=== PATIENT | male | born 1990 | race Caucasian/White ===

== ENCOUNTER 2017-04-05 00:26 | Emergency (ER) | payer OTHER ==
[2017-04-05] MEDS ORDERED: LORazepam 1 MG TAB PO STA (01:52)
--- NOTE | 2017-04-05 02:29 | ED ---
Psych HPI - General Chief Complaint: Psychiatric Symptoms Stated Complaint: mental health Time Seen by Provider: 04/05/17 01:45 Source: patient, RN notes reviewed Mode of arrival: ambulatory - History of Present Illness Initial Comments: Patient is a 26-year-old male presents to the emergency room for psych evaluation. Patient does state he has history of depression, anxiety and PTSD. Patient states he hasn't been on any of his psych meds for the past year. Patient states he's been in alf and has been having family issues. Patient states he has been feeling very depressed about life. Patient does state he is currently homeless which is making him feel even more down. Patient states earlier today he was having suicidal thoughts but no plan. Patient denies being current suicidal. Patient denies chest pain or shortness of breath. Patient denies headache or dizziness. Patient denies nausea or vomiting. Patient denies abdominal pain. Patient denies illicit drug use. Patient denies alcohol use. Patient denies smoking. Patient denies visual or auditory hallucinations. Patient denies homicidal ideations. - Related Data Home Medications Medication Instructions Recorded Confirmed Escitalopram [Lexapro] 10 mg PO DAILY 08/16/15 01/01/16 Previous Rx's Medication Instructions Recorded Orphenadrine [Norflex] 100 mg PO Q12H #10 tablet.er 01/01/16 predniSONE 50 mg PO DAILY #5 tab 01/01/16 Allergies Allergy/AdvReac Type Severity Reaction Status Date / Time divalproex sodium Allergy Unknown Verified 04/05/17 00:31 [facility] Review of Systems ROS Statement: Those systems with pertinent positive or pertinent negative responses have been documented in the HPI. ROS Other: All systems not noted in ROS Statement are negative. Past Medical History Past Medical History: Asthma History of Any Multi-Drug Resistant Organisms: None Reported Additional Past Surgical History / Comment(s): left shoulder rotator cuff repair and biceps tendon repair left arm Past Psychological History: Anxiety, Bipolar, Depression, PTSD Smoking Status: Never smoker Past Alcohol Use History: None Reported Past Drug Use History: None Reported General Exam - General Exam Comments Initial Comments: sitting in exam room, no acute distress. Limitations: no limitations General appearance: alert, in no apparent distress Head exam: Present: atraumatic, normocephalic, normal inspection Eye exam: Present: normal appearance ENT exam: Present: normal exam Neck exam: Present: normal inspection Respiratory exam: Present: normal lung sounds bilaterally. Absent: respiratory distress Cardiovascular Exam: Present: regular rate, normal rhythm, normal heart sounds GI/Abdominal exam: Present: soft, normal bowel sounds. Absent: distended, tenderness, guarding, rebound, rigid Extremities exam: Present: normal inspection Back exam: Present: normal inspection Neurological exam: Present: alert, oriented X3, CN II-XII intact, normal gait Psychiatric exam: Present: normal affect, normal mood Skin exam: Present: warm, dry, intact, normal color. Absent: rash Course Vital Signs 04/05/17 04/05/17 00:27 03:53 Temperature 97.9 F 98.2 F Pulse Rate 88 94 Respiratory 16 18 Rate Blood Pressure 141/79 129/79 O2 Sat by Pulse 98 98 Oximetry Medical Decision Making - Medical Decision Making patient is 26-year-old male presents emergency for psych evaluation. Patient medically cleared to be evaluated by psych. Patient evaluated by EPS and does not meet admission criteria. Patient given a list of referrals and advised to follow up with [facility] in the morning at 8 AM. Return parameters discussed. - Lab Data Lab Results 04/05/17 Range/Units 02:17 Urine Opiates Screen Not Detected (NotDetected) Ur Oxycodone Screen Not Detected (NotDetected) Urine Methadone Screen Not Detected (NotDetected) Ur Propoxyphene Screen Not Detected (NotDetected) Ur Barbiturates Screen Not Detected (NotDetected) U Tricyclic Antidepress Not Detected (NotDetected) Ur Phencyclidine Scrn Not Detected (NotDetected) Ur Amphetamines Screen Not Detected (NotDetected) U Methamphetamines Scrn Not Detected (NotDetected) U Benzodiazepines Scrn Not Detected (NotDetected) Urine Cocaine Screen Not Detected (NotDetected) U Marijuana (THC) Screen Not Detected (NotDetected) Disposition Clinical Impression: Depression, Anxiety Disposition: HOME SELF-CARE Condition: Good Instructions: Depression (ED) Additional Instructions: Please follow up with [facility] at 8 AM. If any new symptom arises or symptoms worsen , return to ER as soon as possible. Referrals: None,Stated [Primary Care Provider] - 1-2 days Time of Disposition: 03:53
[2017-04-05 03:59] VITALS: BP 129/79; PULSE 94; RESP 18; TEMP 98.2
== END 2017-04-05 04:03 | disposition home or self-care (01) ==
LOC: EC 00:26
DX: F32.9 Major depressive disorder, single episode, unspecified (principal); F41.9 Anxiety disorder, unspecified; Z79.899 Other long term (current) drug therapy; Z88.8 Allergy status to other drugs, medicaments and biological substances; Z59.0 Homelessness
CPT/HCPCS: 80306; 82075; 99284

== ENCOUNTER 2017-04-09 20:38 | Emergency (ER) | payer OTHER ==
[2017-04-09 21:31] VITALS: BP 114/68; PULSE 94; RESP 18; TEMP 98.8
--- NOTE | 2017-04-09 21:35 | ED ---
Lower Extremity Injury HPI - General Chief Complaint: Extremity Injury, Lower Stated Complaint: knee pain Time Seen by Provider: 04/09/17 21:29 Source: patient, RN notes reviewed, old records reviewed Mode of arrival: ambulatory - History of Present Illness Initial Comments: This is a 26-year-old male presenting to the emergency Department chief complaint of right knee pain. Patient reports he walked from [place] to [facility] today. Patient reports that he is very sunburn. Patient states that over the day and all the walking causes her to have some pain with in his right knee. Patient reports it's worse with flexion and extension. Patient states he had some previous football injuries of his knee when he was in middle school in high school. Denies any specific twisting or motions that cause the injury today. Patient states that he has no foot or calf pain. Denies any fever or chills or other symptoms. Patient reports that he is currently homeless. - Related Data Home Medications Medication Instructions Recorded Confirmed Escitalopram [Lexapro] 10 mg PO DAILY 08/16/15 01/01/16 Previous Rx's Medication Instructions Recorded Orphenadrine [Norflex] 100 mg PO Q12H #10 tablet.er 01/01/16 predniSONE 50 mg PO DAILY #5 tab 01/01/16 Ibuprofen [Motrin] 600 mg PO Q8HR PRN #20 tab 04/09/17 Allergies Allergy/AdvReac Type Severity Reaction Status Date / Time divalproex sodium Allergy Unknown Verified 04/05/17 00:31 [From Depak[facility]] Review of Systems ROS Statement: Those systems with pertinent positive or pertinent negative responses have been documented in the HPI. ROS Other: All systems not noted in ROS Statement are negative. Past Medical History Past Medical History: Asthma History of Any Multi-Drug Resistant Organisms: None Reported Additional Past Surgical History / Comment(s): left shoulder rotator cuff repair and biceps tendon repair left arm Past Psychological History: Anxiety, Bipolar, Depression, PTSD Smoking Status: Never smoker Past Alcohol Use History: None Reported Past Drug Use History: None Reported General Exam - General Exam Comments Initial Comments: Pleasant 26-year-old male. No distress. General appearance: alert, in no apparent distress Head exam: Present: atraumatic, normocephalic, normal inspection Eye exam: Present: normal appearance, PERRL, EOMI. Absent: scleral icterus, conjunctival injection, periorbital swelling ENT exam: Present: normal exam, mucous membranes moist Neck exam: Present: normal inspection. Absent: tenderness, meningismus, lymphadenopathy Respiratory exam: Present: normal lung sounds bilaterally. Absent: respiratory distress, wheezes, rales, rhonchi, stridor Cardiovascular Exam: Present: regular rate, normal rhythm, normal heart sounds. Absent: systolic murmur, diastolic murmur, rubs, gallop, clicks GI/Abdominal exam: Present: soft, normal bowel sounds. Absent: distended, tenderness, guarding, rebound, rigid Extremities exam: Present: normal inspection, full ROM, normal capillary refill , other (Right knee has full range of motion. Patient does report some pain with flexion and extension. Negative valgus or varus signs.). Absent: tenderness, pedal edema, joint swelling, calf tenderness Back exam: Present: normal inspection Neurological exam: Present: alert, oriented X3, CN II-XII intact Psychiatric exam: Present: normal affect, normal mood Course Vital Signs 04/09/17 04/09/17 21:22 22:33 Temperature 98.8 F 98.8 F Pulse Rate 94 94 Respiratory 18 18 Rate Blood Pressure 114/68 114/68 O2 Sat by Pulse 98 98 Oximetry Medical Decision Making - Medical Decision Making This is a 26-year-old male presenting to the emergency Department chief complaint of right knee pain. Patient reports he walked from [place] to [facility] today. Patient reports that he is very sunburn. Patient states that over the day and all the walking causes her to have some pain with in his right knee. Patient reports it's worse with flexion and extension. Patient states he had some previous football injuries of his knee when he was in middle school in high school. Denies any specific twisting or motions that cause the injury today. Patient states that he has no foot or calf pain. Denies any fever or chills or other symptoms. Patient has pain with full flexion and extension of the knee. No evidence of significant swelling or redness. Patient was given Motrin for pain. Patient does have significant sunburn to the amount of walking his son today. Patient was given some binge drink and food. Patient x-ray was reviewed, negative for any acute process. Patient given tylenol and ultram starter pack. Patient given an SAMUEL wrap for the knee, likely a stress related injury due to prolonged walking. Return parameters discussed. - Radiology Data Radiology results: report reviewed No fracture or malalignment of right knee Disposition Clinical Impression: Knee pain, right Disposition: HOME SELF-CARE Condition: Good Instructions: Knee Sprain (ED) Additional Instructions: Patient is to rest, ice, and elevate the knee. Wear the Samuel wrap for compression. Follow-up with a primary care provider. Patient should rest, remain hydrated. Take Motrin for pain. Prescriptions: Ibuprofen [Motrin] 600 mg PO Q8HR PRN #20 tab PRN Reason: Pain Referrals: None,Stated [Primary Care Provider] - 1-2 days Maricruz Tierney MD [STAFF PHYSICIAN] - 1-2 days Time of Disposition: 22:20
[2017-04-09] MEDS ORDERED: IBUPROFEN 800 MG TAB PO STA (21:56)
--- NOTE | 2017-04-09 22:17 | XR ---
EXAM: XR Right Knee, 3 views CLINICAL HISTORY: Reason: Pain TECHNIQUE: Three views of the right knee. COMPARISON: No relevant prior studies available. FINDINGS: Bones/joints: No acute fracture or malalignment. Soft tissues: Unremarkable. IMPRESSION: No acute fracture or malalignment.
[2017-04-09] MEDS ORDERED: IBUPROFEN 600 MG STARTER PACK 4 TAB BTL PO STA (22:21)
[2017-04-09] MEDS ORDERED: traMADol 50 MG STARTER PACK 3 TAB BTL PO STA (22:21)
== END 2017-04-09 22:36 | disposition home or self-care (01) ==
LOC: EC 20:38
DX: M25.561 Pain in right knee (principal); L55.9 Sunburn, unspecified; F32.9 Major depressive disorder, single episode, unspecified; F41.9 Anxiety disorder, unspecified; Z79.899 Other long term (current) drug therapy; Z88.8 Allergy status to other drugs, medicaments and biological substances; Z59.0 Homelessness
CPT/HCPCS: 99284

== ENCOUNTER 2017-04-27 21:13 | Emergency (ER) | payer OTHER ==
[2017-04-27 21:27] VITALS: TEMP 99
[2017-04-27] MEDS ORDERED: KETOROLAC 60 MG/2 ML VIAL IM STA (21:51)
--- NOTE | 2017-04-27 21:51 | ED ---
General Adult HPI - General Chief complaint: Chest Pain Stated complaint: CHEST PAIN Time Seen by Provider: 04/27/17 21:37 Source: patient, RN notes reviewed Mode of arrival: ambulatory Limitations: no limitations - History of Present Illness Initial comments: Patient is a pleasant 26-year-old male presenting to the emergency department complaining of chest discomfort. Onset was an hour or so ago. Patient states he has had similar problems multiple times. Discomfort is sharp. Discomfort increases with movement and deep breaths. Patient has had a mild cough recently. No fevers. No radiation of pain. - Related Data Previous Rx's Medication Instructions Recorded ALPRAZolam [Xanax] 0.5 mg PO Q8HR PRN #6 tablet 04/27/17 Allergies Allergy/AdvReac Type Severity Reaction Status Date / Time divalproex sodium Allergy Unknown Verified 04/27/17 22:01 [From [facility]] Review of Systems ROS Statement: Those systems with pertinent positive or pertinent negative responses have been documented in the HPI. ROS Other: All systems not noted in ROS Statement are negative. Constitutional: Denies: fever Eyes: Denies: eye pain ENT: Denies: ear pain Respiratory: Reports: cough. Denies: dyspnea Cardiovascular: Reports: chest pain. Denies: palpitations Endocrine: Denies: fatigue Gastrointestinal: Denies: abdominal pain Genitourinary: Denies: dysuria Musculoskeletal: Denies: back pain Skin: Denies: rash Neurological: Denies: weakness Past Medical History Past Medical History: Asthma History of Any Multi-Drug Resistant Organisms: None Reported Additional Past Surgical History / Comment(s): left shoulder rotator cuff repair and biceps tendon repair left arm Past Psychological History: Anxiety, Depression, PTSD Smoking Status: Never smoker Past Alcohol Use History: None Reported Past Drug Use History: None Reported General Exam Limitations: no limitations General appearance: alert, in no apparent distress Head exam: Present: atraumatic Eye exam: Present: normal appearance, PERRL ENT exam: Present: normal oropharynx Neck exam: Present: normal inspection Respiratory exam: Present: normal lung sounds bilaterally, chest wall tenderness (Left sternal) Cardiovascular Exam: Present: regular rate, normal rhythm Expanded Peripheral pulses: 2+: Radial (R), Radial (L), Dorsalis Pedis (R), Dorsalis Pedis (L) GI/Abdominal exam: Present: soft. Absent: tenderness Extremities exam: Present: normal inspection. Absent: pedal edema, calf tenderness Neurological exam: Present: alert Psychiatric exam: Present: normal affect, normal mood Skin exam: Present: normal color Course Vital Signs 04/27/17 04/27/17 21:24 21:53 Temperature 99 F Pulse Rate 87 83 Respiratory 18 16 Rate Blood Pressure 139/87 127/80 O2 Sat by Pulse 97 98 Oximetry EKG Findings - EKG Comments: EKG Findings:: Normal sinus rhythm 80. Normal intervals. Normal axis. Normal QRS. Normal ST-T. Medical Decision Making - Medical Decision Making Patient reevaluated and resting comfortably in bed. Patient updated on results. Patient requests medication for anxiety. - Radiology Data Radiology results: image reviewed (Chest x-ray shows no acute process) Disposition Clinical Impression: Costochondritis Disposition: HOME SELF-CARE Condition: Stable Instructions: Costochondritis (ED), Chest Pain (ED) Additional Instructions: Please follow-up with primary care physician in the beginning of the week. Return for increased pain, difficulty breathing, fevers, worsening or changing symptoms or other concerns. [id number] Motrin as needed. Prescriptions: ALPRAZolam [Xanax] 0.5 mg PO Q8HR PRN #6 tablet PRN Reason: Anxiety Referrals: None,Stated [Primary Care Provider] - 1-2 days Delphine Olson MD [REFERRING] - 1-2 days Maricruz Tierney MD [STAFF PHYSICIAN] - 1-2 days Time of Disposition: 22:26
[2017-04-27 21:54] VITALS: RESP 16
--- NOTE | 2017-04-27 22:09 | XR ---
EXAMINATION TYPE: XR chest 2V DATE OF EXAM: 04/27/2017 COMPARISON: 08/10/2015 HISTORY: Chest pain TECHNIQUE: Frontal and lateral views of the chest are obtained. FINDINGS: Heart and mediastinum are normal. Lungs are clear. Diaphragm is normal. Bony thorax is int act. There are chest leads. IMPRESSION: Normal chest. No change.
[2017-04-27 22:30] VITALS: BP 118/58; PULSE 70
== END 2017-04-27 22:48 | disposition home or self-care (01) ==
LOC: EC 21:13
DX: M94.0 Chondrocostal junction syndrome [Tietze] (principal); R07.89 Other chest pain; Z88.8 Allergy status to other drugs, medicaments and biological substances
CPT/HCPCS: 99285; 96372; 93005; 71020; J1885

== ENCOUNTER 2017-05-14 08:47 | Emergency (ER) | payer OTHER ==
[2017-05-14 08:50] VITALS: TEMP 97.1
[2017-05-14] MEDS ORDERED: IBUPROFEN 600 MG TAB PO STA (09:07)
--- NOTE | 2017-05-14 09:12 | ED ---
Lower Extremity Injury HPI - General Chief Complaint: Extremity Injury, Lower Stated Complaint: left knee injury Time Seen by Provider: 05/14/17 08:58 Source: patient, RN notes reviewed Mode of arrival: ambulatory Limitations: no limitations - History of Present Illness Initial Comments: Patient is 26-year-old male presents to the emergency room for evaluation of left knee pain. 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 Patient states it. In the medial portion of his knee. Patient states that he 7 out of 10 pain. Patient denies taking anything for pain. Patient states the pain is worse ever he walks or bends her knee. Patient numbness or tingling in his toes. Patient denies any other injuries during incident. - Related Data Previous Rx's Medication Instructions Recorded Ibuprofen [Motrin] 600 mg PO Q6HR PRN #20 tab 05/14/17 Allergies Allergy/AdvReac Type Severity Reaction Status Date / Time divalproex sodium Allergy Swelling/YELLOW Verified 05/14/17 08:56 [facility] EYES Review of Systems ROS Statement: Those systems with pertinent positive or pertinent negative responses have been documented in the HPI. ROS Other: All systems not noted in ROS Statement are negative. Past Medical History Past Medical History: Asthma History of Any Multi-Drug Resistant Organisms: None Reported Additional Past Surgical History / Comment(s): left shoulder rotator cuff repair and biceps tendon repair left arm Past Psychological History: Anxiety, Depression, PTSD Smoking Status: Never smoker Past Alcohol Use History: None Reported Past Drug Use History: None Reported General Exam - General Exam Comments Initial Comments: Sitting in exam room, no distress. Limitations: no limitations General appearance: alert, in no apparent distress Head exam: Present: atraumatic, normocephalic, normal inspection Eye exam: Present: normal appearance ENT exam: Present: normal exam Neck exam: Present: normal inspection Respiratory exam: Absent: respiratory distress Left Upper Leg exam: Present: normal inspection, full ROM. Absent: tenderness Knee exam: Present: normal inspection, full ROM, tenderness (Tenderness on palpating over the medial knee joint). Absent: swelling, ecchymosis, deformity , crepitus Lower Leg exam: Present: normal inspection, full ROM. Absent: tenderness Neurovascular tendon exam: Present: no vascular compromise. Absent: pulse deficit (2+ dorsal pedal and posterior tibial pulses), abnormal cap refill ( Capillary refill less than 2 seconds) Back exam: Present: normal inspection Neurological exam: Present: alert, oriented X3, CN II-XII intact Psychiatric exam: Present: normal affect, normal mood Skin exam: Present: warm, dry, intact, normal color. Absent: rash Course Vital Signs 05/14/17 08:48 Temperature 97.1 F L Pulse Rate 66 Respiratory 17 Rate Blood Pressure 125/69 O2 Sat by Pulse 96 Oximetry Medical Decision Making - Medical Decision Making Patient is a 26-year-old male presents emergency room for evaluation of left knee pain. Left knee x-ray shows no acute findings. Patient placed in Samuel wrap advised up with optical instrument specialist for further evaluation if symptoms not improving in 7-10 days. Patient states he understands everything that was discussed with him. Return parameters discussed. Case discussed with Dr. López. - Radiology Data Radiology results: report reviewed, image reviewed Disposition Clinical Impression: Left knee sprain Disposition: HOME SELF-CARE Condition: Good Instructions: Knee Sprain (ED) Additional Instructions: Ice on and off for 10-15 minutes for the next 24-48 hours. Take Tylenol or Motrin as needed for pain. Please follow-up with optical instrument specialist in 7-10 days if symptoms are not improving. If new symptoms develop or symptoms worsen, please return to the ER. Prescriptions: Ibuprofen [Motrin] 600 mg PO Q6HR PRN #20 tab PRN Reason: Pain Referrals: Neema Fox MD [Primary Care Provider] - 1-2 days Luis Felipe Rae MD [STAFF PHYSICIAN] - 1-2 days Time of Disposition: 09:46
--- NOTE | 2017-05-14 09:27 | XR ---
EXAMINATION TYPE: XR knee complete LT DATE OF EXAM: 05/14/2017 CLINICAL HISTORY: pain TECHNIQUE: Three views of the left knee are obtained. COMPARISON: None. FINDINGS: There is no acute fracture/dislocation. The tri-compartment joint spaces appear within no rmal limits. The overlying soft tissue appears unremarkable. Small bone island proximal tibial diaph ysis. Small cystic lesion diametaphyseal region of the tibia may reflect a simple cyst. This could be further evaluated with nonemergent MRI. IMPRESSION: There is no acute fracture or dislocation ICD 10 NO FRACTURE, INITIAL EVALUATION
[2017-05-14 10:11] VITALS: BP 124/81; PULSE 70; RESP 18
== END 2017-05-14 10:09 | disposition home or self-care (01) ==
LOC: EC 08:47
DX: S83.92XA Sprain of unspecified site of left knee, initial encounter (principal); Z88.8 Allergy status to other drugs, medicaments and biological substances; X50.1XXA Overexertion from prolonged static or awkward postures, initial encounter; Y93.89 Activity, other specified
CPT/HCPCS: 99283

== ENCOUNTER 2017-05-30 10:10 | Emergency (ER) | payer OTHER ==
[2017-05-30 10:20] VITALS: RESP 18
[2017-05-30] MEDS ORDERED: KETOROLAC 60 MG/2 ML VIAL IM STA (10:30)
--- NOTE | 2017-05-30 10:36 | ED ---
General Adult HPI - General Chief complaint: Extremity Problem,Nontraumatic Stated complaint: rt leg pain Time Seen by Provider: 05/30/17 10:24 Source: patient Mode of arrival: ambulatory Limitations: no limitations - History of Present Illness Initial comments: 26 years male presents with hip pain radiating down all the way to the right foot, he has a history of low back pain but today his back feels pretty. He denies any trauma any fall or any car accident recently he denies any loss of bowel or bladder function. His leg feels numb. No trauma to The leg itself, he does have a history of bulging disc in the back, review of system is unremarkable otherwise - Related Data Home Medications Medication Instructions Recorded Confirmed No Known Home Medications [No 05/30/17 05/30/17 Known Home Medications] Previous Rx's Medication Instructions Recorded predniSONE 20 mg PO DAILY #5 tab 05/30/17 Allergies Allergy/AdvReac Type Severity Reaction Status Date / Time divalproex sodium Allergy Swelling/YELLOW Verified 05/30/17 10:38 [[facility]] EYES Review of Systems ROS Statement: Those systems with pertinent positive or pertinent negative responses have been documented in the HPI. ROS Other: All systems not noted in ROS Statement are negative. Past Medical History Past Medical History: Asthma History of Any Multi-Drug Resistant Organisms: None Reported Additional Past Surgical History / Comment(s): left shoulder rotator cuff repair and biceps tendon repair left arm Past Psychological History: Anxiety, Depression, PTSD Smoking Status: Never smoker Past Alcohol Use History: None Reported Past Drug Use History: None Reported General Exam - General Exam Comments Initial Comments: General: The patient is awake and alert, in no distress, and does not appear acutely ill. Skin: Skin is warm and dry and no rashes or lesions are noted. Eye: Pupils are equal, round and reactive to light, extra-ocular movements are intact; there is normal conjunctiva bilaterally. Ears, nose, mouth and throat: There are moist mucous membranes and no oral lesions. Neck: The neck is supple, there is no tenderness or JVD. Cardiovascular: There is a regular rate and rhythm. No murmur, rub or gallop is appreciated. Respiratory: To auscultation bilateral, no wheezing no rhonchi no distress respiratory de guzman noticed Gastrointestinal: Soft, non-distended, non-tender abdomen without masses or organomegaly noted. There is no rebound or guarding present. Bowel sounds are unremarkable. Back: There is no tenderness to palpation in the midline. There is no obvious deformity. Musculoskeletal: Leg raise is positive on the right side deep tendon reflexes are fine both sides Neurological: CN II-XII intact, Cranial nerves III through XII are intact. There are no obvious motor or sensory deficits. Coordination appears grossly intact. Speech is normal. Psychiatric: Cooperative, appropriate mood & affect, normal judgment. Limitations: no limitations Course Vital Signs 05/30/17 10:18 Temperature 97.8 F Pulse Rate 70 Respiratory 18 Rate Blood Pressure 128/73 O2 Sat by Pulse 99 Oximetry Disposition Clinical Impression: Radiculopathy, Bulging disc Disposition: HOME SELF-CARE Condition: Good Instructions: Lumbar Radiculopathy (ED) Additional Instructions: Is advised to add Motrin or Advil 6-800 mg by mouth 3 times a day as needed and see Dr. Thomason orthospine Prescriptions: predniSONE 20 mg PO DAILY #5 tab Referrals: Neema Fox MD [Primary Care Provider] - 1-2 days Edison Rg DO [Doctor of Osteopathic Medicine] - 1-2 days
--- NOTE | 2017-05-30 11:35 | CT ---
EXAMINATION TYPE: CT lumbar spine wo con DATE OF EXAM: 05/30/2017 COMPARISON: NONE HISTORY: 26-year-old male with right leg and hip pain TECHNIQUE: Contiguous axial scanning of the lumbar spine without IV contrast. Coronal and sagittal re constructions performed. CT DLP: 904 mGycm Automated exposure control for dose reduction was used. FINDINGS: Vertebral body heights are preserved and alignment is maintained. Mild disc bulging mid to lower lumbar spine with a larger diffuse disc bulge at L4-L5 eccentric towar ds the right. There is impresses onto the ventral thecal sac but does not cause significant spinal ca nal stenosis. Suspect that this has mass effect on the traversing right L5 nerve root. At L3-L4, mild bulging disc with minimal inferior foraminal narrowing on the left. At L4-L5, there is mild bilateral neural foraminal stenosis. At L5-S1, there is broad-based disc bulge without significant canal or foraminal stenosis. No prevertebral or paravertebral soft tissue body seen. IMPRESSION: DIFFUSE DISC BULGE WITH SUPERIMPOSED RIGHT PARACENTRAL DISC HERNIATION AT L4-L5. CORRELATE FOR IMPING EMENT OF THE TRAVERSING RIGHT L5 NERVE ROOT AT THIS LEVEL. NO CANAL COMPROMISE.
--- NOTE | 2017-05-30 11:54 | XR ---
EXAMINATION TYPE: XR Hip Complete RT DATE OF EXAM: 05/30/2017 COMPARISON: None. HISTORY: 26-year-old male with right hip pain TECHNIQUE: 2 views FINDINGS: No evidence for acute fracture, subluxation, or dislocation. IMPRESSION: No acute osseous abnormality seen.
[2017-05-30 12:13] VITALS: BP 124/78; PULSE 82; TEMP 97.9
== END 2017-05-30 12:15 | disposition home or self-care (01) ==
LOC: EC 10:10
DX: M54.16 Radiculopathy, lumbar region (principal); M51.26 Other intervertebral disc displacement, lumbar region; Z88.8 Allergy status to other drugs, medicaments and biological substances
CPT/HCPCS: 73502; 72131; 99284; 96372; J1885

== ENCOUNTER 2017-07-09 08:58 | Emergency (ER) | payer OTHER ==
[2017-07-09 09:02] VITALS: BP 113/74; PULSE 83; RESP 18; TEMP 97.9
[2017-07-09] MEDS ORDERED: methylPREDNISolone SOD SUCCI 125 MG/2 ML VIAL IV STA (09:22)
[2017-07-09] MEDS ORDERED: hydrOXYzine HCL 25 MG TAB PO STA (09:22)
--- NOTE | 2017-07-09 09:24 | ED ---
General Adult HPI - General Chief complaint: Skin/Abscess/Foreign Body Stated complaint: bruising on legs, skin irritation Time Seen by Provider: 07/09/17 09:16 Source: patient, RN notes reviewed Mode of arrival: ambulatory Limitations: no limitations - History of Present Illness Initial comments: 27-year-old male presents to the emergency department with a chief complaint of itchy rash to his lower extremities. Patient states he's had this for the past few days. Patient states he's noticed some abnormal bruising around his hips so he was concerned. Patient states that he hasn't had imaging finger labs or the toe webs. Patient states no in-house for scabies. Patient states he itching to the point he is causing bleeding. Patient states that he noticed bruises to the upper thigh so he was concerned. Patient denies any fever chills. Patient history of this rash in the past. Patient denies any mouth having a rash that he is around. Patient denies any recent fever, chills, shortness of breath, chest pain, back pain, abdominal pain, nausea vomiting, numbness or tingling, dysuria or hematuria, constipation or diarrhea, headaches or visual changes, or any other current symptoms. - Related Data Previous Rx's Medication Instructions Recorded hydrOXYzine HCL [Atarax] 10 mg PO TID #20 tab 07/09/17 predniSONE 50 mg PO DAILY #5 tab 07/09/17 Allergies Allergy/AdvReac Type Severity Reaction Status Date / Time divalproex sodium Allergy Swelling/YELLOW Verified 07/09/17 09:16 [From Depakote] EYES Review of Systems ROS Statement: Those systems with pertinent positive or pertinent negative responses have been documented in the HPI. ROS Other: All systems not noted in ROS Statement are negative. Past Medical History Past Medical History: Asthma History of Any Multi-Drug Resistant Organisms: None Reported Additional Past Surgical History / Comment(s): left shoulder rotator cuff repair and biceps tendon repair left arm Past Psychological History: Anxiety, Depression, PTSD Smoking Status: Never smoker Past Alcohol Use History: None Reported Past Drug Use History: None Reported General Exam Limitations: no limitations General appearance: alert, in no apparent distress ENT exam: Present: normal exam, mucous membranes moist Neck exam: Present: normal inspection. Absent: tenderness, meningismus, lymphadenopathy Respiratory exam: Present: normal lung sounds bilaterally. Absent: respiratory distress, wheezes, rales, rhonchi, stridor Cardiovascular Exam: Present: regular rate, normal rhythm, normal heart sounds. Absent: systolic murmur, diastolic murmur, rubs, gallop, clicks Neurological exam: Present: alert, oriented X3 Psychiatric exam: Present: normal affect, normal mood Skin exam: Present: warm, dry, rash (Pruritic type rash papular to the bilateral lower extremities) Course Vital Signs 07/09/17 09:00 Temperature 97.9 F Pulse Rate 83 Respiratory 18 Rate Blood Pressure 113/74 O2 Sat by Pulse 98 Oximetry Medical Decision Making - Medical Decision Making 27-year-old male presents for papular-like rash the bilateral lower extremities. this time patient's lab work And reviewed and show any acute problems. This time we was patient steroids and Atarax for home to help with the rash and itching. We did discuss follow-up with his doctor. We discussed return parameters all patient's questions. He stated he understood and he is given plan. All questions have been answered. She will be discharged home - Lab Data Result diagrams: 07/09/17 09:40 07/09/17 09:40 Lab Results 07/09/17 07/09/17 07/09/17 Range/Units 09:40 09:40 09:40 WBC 4.6 (3.8-10.6) k/uL RBC 4.79 (4.30-5.90) m/uL Hgb 15.3 (13.0-17.5) gm/dL Hct 44.7 (39.0-53.0) % MCV 93.2 (80.0-100.0) fL MCH 32.0 (25.0-35.0) pg MCHC 34.3 (31.0-37.0) g/dL RDW 13.4 (11.5-15.5) % Plt Count 204 (150-450) k/uL Neutrophils % 69 % Lymphocytes % 21 % Monocytes % 6 % Eosinophils % 3 % Basophils % 1 % Neutrophils # 3.2 (1.3-7.7) k/uL Lymphocytes # 1.0 (1.0-4.8) k/uL Monocytes # 0.3 (0-1.0) k/uL Eosinophils # 0.1 (0-0.7) k/uL Basophils # 0.0 (0-0.2) k/uL PT 10.5 (9.0-12.0) sec INR 1.0 (<1.2) APTT 26.9 (22.0-30.0) sec Sodium 143 (137-145) mmol/L Potassium 3.9 (3.5-5.1) mmol/L Chloride 108 H (98-107) mmol/L Carbon Dioxide 26 (22-30) mmol/L Anion Gap 9 mmol/L BUN 13 (9-20) mg/dL Creatinine 0.77 (0.66-1.25) mg/dL Est GFR (MDRD) Af Amer >60 (>60 ml/min/1.73 sqM) Est GFR (MDRD) Non-Af >60 (>60 ml/min/1.73 sqM) Glucose 94 (74-99) mg/dL Calcium 9.3 (8.4-10.2) mg/dL Total Bilirubin 0.9 (0.2-1.3) mg/dL AST 20 (17-59) U/L ALT 29 (21-72) U/L Alkaline Phosphatase 58 (38-126) U/L Total Protein 7.0 (6.3-8.2) g/dL Albumin 4.4 (3.5-5.0) g/dL Disposition Clinical Impression: Acute maculopapular rash Disposition: HOME SELF-CARE Condition: Stable Instructions: Acute Rash (ED) Additional Instructions: Please use medication as discussed. Please follow up with family doctor if symptoms have not improved over the next two days. Please return to the emergency room if your symptoms increase or worsen or for any other concerns. Prescriptions: hydrOXYzine HCL [Atarax] 10 mg PO TID #20 tab predniSONE 50 mg PO DAILY #5 tab Referrals: Neema Fox MD [Primary Care Provider] - 1-2 days Time of Disposition: 10:12
[2017-07-09 09:54] LABS: Basophils % (A) 1 %; CH 33.5; CHCM 36.2; Eosinophils # (A) 0.1 k/uL (0-0.7); Eosinophils % (A) 3 %; HCT 44.7 % (39.0-53.0); HDW 2.98; HGB 15.3 gm/dL (13.0-17.5); Luc # (Auto) 0.06; Luc % (Auto) 1; Lymphocytes % (A) 21 %; MCHC 34.3 g/dL (31.0-37.0); MCV 93.2 fL (80.0-100.0); Mean Platelet Volume 7.1; Monocytes # (A) 0.3 k/uL (0-1.0); Monocytes % (A) 6 %; Neutrophils # (A) 3.2 k/uL (1.3-7.7); Neutrophils % (A) 69 %; RBC 4.79 m/uL (4.30-5.90); RDW 13.4 % (11.5-15.5); WBC 4.6 k/uL (3.8-10.6); WBC (Perox) 4.64
[2017-07-09 10:03] LABS: ALT 29 U/L (21-72); AST 20 U/L (17-59); Alkaline Phosphatase 58 U/L (38-126); Anion Gap 9 mmol/L; Blood Urea Nitrogen 13 mg/dL (9-20); Calcium 9.3 mg/dL (8.4-10.2); Carbon Dioxide 26 mmol/L (22-30); Chloride 108 mmol/L (98-107); Glucose 94 mg/dL (74-99); Non-African American GFR(MDRD) >60 (>60 ml/min/1.73 sqM); Partial Thromboplastin Time 26.9 sec (22.0-30.0); Potassium 3.9 mmol/L (3.5-5.1); Prothrombin Time 10.5 sec (9.0-12.0); Sodium 143 mmol/L (137-145); Total Bilirubin 0.9 mg/dL (0.2-1.3)
== END 2017-07-09 10:48 | disposition home or self-care (01) ==
LOC: EC 08:58
DX: R21 Rash and other nonspecific skin eruption (principal); Z88.8 Allergy status to other drugs, medicaments and biological substances
CPT/HCPCS: 36415; 80053; 85025; 85610; 85730; 99283; 96374; J2930

== ENCOUNTER 2017-08-01 07:56 | Emergency (ER) | payer OTHER ==
[2017-08-01 08:00] VITALS: BP 121/77; PULSE 82; RESP 20; TEMP 97.5
--- NOTE | 2017-08-01 08:36 | ED ---
Skin/Abscess/FB HPI - General Chief complaint: Skin/Abscess/Foreign Body Stated complaint: RASH Time Seen by Provider: 08/01/17 08:10 Source: patient, RN notes reviewed Mode of arrival: ambulatory Limitations: no limitations - History of Present Illness Initial comments: 27-year-old male presents emergency Department with chief complaint of rash on 2 months. Patient states she was seen once before states that he was given steroids and Atarax. Patient states it has gotten worsen. States anytime he gets hot symptoms get worse. Patient denies any fever or chills denies any new soaps, lotions, detergents or any medications. Patient states he also has an infection of his right foot first toe. Patient states the nail fell off grew back and it has grown into the skin. - Related Data Previous Rx's Medication Instructions Recorded Cephalexin [Keflex] 500 mg PO Q6HR #40 cap 08/01/17 Permethrin 5% Cream [Elimite] 1 applic TOPICAL ONCE #60 gram 08/01/17 Allergies Allergy/AdvReac Type Severity Reaction Status Date / Time divalproex sodium Allergy Swelling/YELLOW Verified 08/01/17 08:05 [From Depakote] EYES Review of Systems ROS Statement: Those systems with pertinent positive or pertinent negative responses have been documented in the HPI. ROS Other: All systems not noted in ROS Statement are negative. Past Medical History Past Medical History: Asthma History of Any Multi-Drug Resistant Organisms: None Reported Additional Past Surgical History / Comment(s): left shoulder rotator cuff repair and biceps tendon repair left arm Past Psychological History: Anxiety, Depression, PTSD Smoking Status: Never smoker Past Alcohol Use History: None Reported Past Drug Use History: None Reported General Exam Limitations: no limitations General appearance: alert, in no apparent distress Head exam: Present: atraumatic, normocephalic, normal inspection Respiratory exam: Present: normal lung sounds bilaterally. Absent: respiratory distress, wheezes, rales, rhonchi, stridor Cardiovascular Exam: Present: regular rate, normal rhythm, normal heart sounds. Absent: systolic murmur, diastolic murmur, rubs, gallop, clicks Extremities exam: Present: other (Right foot first digit there is erythema, mild swelling over the nail fold along with the nail is growing to the skin.) Skin exam: Present: warm, dry, intact, normal color, rash (Macular papular with excoriations diffusely over the body) Course Vital Signs 08/01/17 07:57 Temperature 97.5 F L Pulse Rate 82 Respiratory 20 Rate Blood Pressure 121/77 O2 Sat by Pulse 99 Oximetry Medical Decision Making - Medical Decision Making 27-year-old male presents from for rash. Patient has scabies rash. Patient be given Elimite for this and Keflex for his ingrown toenail is advised follow-up with his PCP or podiatrists for further care. Return parameters were discussed. Disposition Clinical Impression: Scabies, Ingrowing toenail with infection Disposition: HOME SELF-CARE Condition: Stable Instructions: Scabies (ED) Additional Instructions: Please return to the Emergency Department if symptoms worsen or any other concerns. Prescriptions: Cephalexin [Keflex] 500 mg PO Q6HR #40 cap Permethrin 5% Cream [Elimite] 1 applic TOPICAL ONCE #60 gram Referrals: Neema Fox MD [Primary Care Provider] - 1-2 days Time of Disposition: 08:36
== END 2017-08-01 08:45 | disposition home or self-care (01) ==
LOC: EC 07:56
DX: B86 Scabies (principal); L60.0 Ingrowing nail; Z88.8 Allergy status to other drugs, medicaments and biological substances
CPT/HCPCS: 99282

== ENCOUNTER 2018-04-10 09:01 | Emergency (ER) | payer OTHER ==
[2018-04-10 09:21] VITALS: BP 115/72; PULSE 85; RESP 18; TEMP 98.5
[2018-04-10] MEDS ORDERED: KETOROLAC 60 MG/2 ML VIAL IM STA (09:56)
[2018-04-10] MEDS ORDERED: ORPHENADRINE 30 MG/ML 2 ML VIAL IM STA (09:56)
--- NOTE | 2018-04-10 10:13 | ED ---
Back Pain HPI - General Chief Complaint: Back Pain/Injury Stated Complaint: Back Pain Time Seen by Provider: 04/10/18 09:36 Source: patient, RN notes reviewed, old records reviewed Limitations: physical limitation - History of Present Illness Initial Comments: 27-year-old male presents the emergency department today chief complaint of lower back pain. Patient reports that he was bending over to tie shoes before going to work and he had a sharp pull in his back. He states that since then he said muscle spasm. He reports he laid on the ground for 2 hours before able to get up. Patient states that he has history of degenerative disc disease. He states that he has pain scale shooting down his legs. He denies any loss of bowel or bladder control, denies any saddle anesthesias. - Related Data Previous Rx's Medication Instructions Recorded Acetaminophen with Codeine 1 tab PO Q6H PRN 3 Days #12 tab 04/10/18 [Tylenol w/codeine #3] Cyclobenzaprine [Flexeril] 10 mg PO TID #15 tab 04/10/18 Dexamethasone 0.75 mg PO DAILY #12 tab 04/10/18 Allergies Allergy/AdvReac Type Severity Reaction Status Date / Time divalproex sodium Allergy Swelling/YELLOW Verified 04/10/18 09:42 [From Depakote] EYES Review of Systems ROS Statement: Those systems with pertinent positive or pertinent negative responses have been documented in the HPI. ROS Other: All systems not noted in ROS Statement are negative. Past Medical History Past Medical History: Asthma Additional Past Medical History / Comment(s): back pain History of Any Multi-Drug Resistant Organisms: None Reported Past Surgical History: Joint Replacement Additional Past Surgical History / Comment(s): left shoulder rotator cuff repair and biceps tendon repair left arm Past Psychological History: Anxiety, Depression, PTSD Smoking Status: Never smoker Past Alcohol Use History: None Reported Past Drug Use History: None Reported General Exam - General Exam Comments Initial Comments: 27-year-old male. Alert and oriented. No distress. Limitations: physical limitation General appearance: alert, in no apparent distress Head exam: Present: atraumatic, normocephalic, normal inspection Eye exam: Present: normal appearance, PERRL, EOMI. Absent: scleral icterus, conjunctival injection, periorbital swelling ENT exam: Present: normal exam, mucous membranes moist Neck exam: Present: normal inspection. Absent: tenderness, meningismus, lymphadenopathy Respiratory exam: Present: normal lung sounds bilaterally. Absent: respiratory distress, wheezes, rales, rhonchi, stridor Cardiovascular Exam: Present: regular rate, normal rhythm, normal heart sounds. Absent: systolic murmur, diastolic murmur, rubs, gallop, clicks GI/Abdominal exam: Present: soft, normal bowel sounds. Absent: distended, tenderness, guarding, rebound, rigid Extremities exam: Present: normal inspection, full ROM, normal capillary refill. Absent: tenderness, pedal edema, joint swelling, calf tenderness Back exam: Present: normal inspection, tenderness ( and lumbar spinal tenderness.), paraspinal tenderness (Lumbar vertebral and paraspinal tenderness. ), vertebral tenderness. Absent: CVA tenderness (R), CVA tenderness (L) Neurological exam: Present: alert, oriented X3, CN II-XII intact Psychiatric exam: Present: normal affect, normal mood Skin exam: Present: warm, dry, intact, normal color. 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 He states that he had a spasm in his back. Today x-rays reveal normal spine. He does have some tenderness over the lumbar spine. Discussed I'll discharge the Patient with anti-inflammatory medicine and muscle relaxers. He can follow-up with PCP. Given a note for work. All questions answered and return parameters were discussed. - Radiology Data Radiology results: report reviewed Normal 3 view lumbar spine. Disposition Clinical Impression: Mechanical back pain, Acute lumbar back pain Disposition: HOME SELF-CARE Condition: Good Instructions: Acute Low Back Pain (ED) Additional Instructions: Vision is follow-up with primary care provider. Take the medications as prescribed. Return to the emergency department if any alarming signs or symptoms occur. Prescriptions: Acetaminophen with Codeine [Tylenol w/codeine #3] 1 tab PO Q6H PRN 3 Days #12 tab PRN Reason: Pain Cyclobenzaprine [Flexeril] 10 mg PO TID #15 tab Dexamethasone 0.75 mg PO DAILY #12 tab Is patient prescribed a controlled substance at d/c from ED?: Yes When asked, does pt state using other controlled substances?: No If prescribed controlled substance>3 days was MAPS reviewed?: Yes If opioid is for acute pain is fill amount 7 days or less?: Yes If Rx opioid, was Start Talking consent form obtained?: Yes Referrals: Neema Fox MD [Primary Care Provider] - 1-2 days Time of Disposition: 10:27
--- NOTE | 2018-04-10 10:22 | XR ---
EXAMINATION TYPE: XR lumbar spine 2 or 3V DATE OF EXAM: 04/10/2018 COMPARISON: NONE HISTORY: Pain bilateral pain after bending over TECHNIQUE: Three-view lumbar spine FINDINGS: There 5 lumbar-type vertebral bodies. The pedicles are intact. Disc heights are preserved. Vertebral body heights are preserved. Alignment is normal. IMPRESSION: 1. Normal three-view lumbar spine
== END 2018-04-10 10:45 | disposition home or self-care (01) ==
LOC: EC 09:01
DX: M54.5 Low back pain (principal); Z88.8 Allergy status to other drugs, medicaments and biological substances; X50.1XXA Overexertion from prolonged static or awkward postures, initial encounter; Y93.89 Activity, other specified
CPT/HCPCS: 72100; 99284; 96372 ×2; J2360; J1885

== ENCOUNTER 2019-02-18 18:00 | Emergency (ER) | payer OTHER ==
[2019-02-18 18:14] VITALS: BP 136/88; PULSE 72; RESP 18; TEMP 99
[2019-02-18] MEDS ORDERED: PENICILLIN G BENZATHINE 1,200,000 UNIT/2 ML SYRINGE IM STA (18:42)
--- NOTE | 2019-02-18 18:45 | ED ---
Recheck HPI - General Chief Complaint: Recheck/Abnormal Lab/Rx Stated Complaint: Wants blood work done Time Seen by Provider: 02/18/19 18:18 Source: patient Mode of arrival: ambulatory Limitations: no limitations - History of Present Illness Initial Comments: 28-year-old male patient presents to the emergency department today requesting testing for syphilis. 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 He states that they informed him that sometimes the results are false positives and he shouldn't have further evaluation. Patient denies any history of symptoms consistent with syphilis. States he last had sexual intercourse about a year and a half ago. He denies ever having a wound or sore to his penis. Denies any rash. States he feels well physically and has no other concerns. Patient denies any recent rash, fever, chills, shortness breath, chest pain, abdominal pain, nausea, vomiting, diarrhea, constipation, back pain, numbness, tingling, dizziness, weakness, hematuria, dysuria, urinary urgency, urinary frequency, headache, visual changes, or any other complaints. - Related Data Home Medications Medication Instructions Recorded Confirmed No Known Home Medications 02/18/19 02/18/19 Allergies Allergy/AdvReac Type Severity Reaction Status Date / Time divalproex sodium Allergy Swelling/YELLOW Verified 02/18/19 18:46 [From Depakote] EYES Review of Systems ROS Statement: Those systems with pertinent positive or pertinent negative responses have been documented in the HPI. ROS Other: All systems not noted in ROS Statement are negative. Past Medical History Past Medical History: Asthma Additional Past Medical History / Comment(s): back pain History of Any Multi-Drug Resistant Organisms: None Reported Past Surgical History: Joint Replacement Additional Past Surgical History / Comment(s): left shoulder rotator cuff repair and biceps tendon repair left arm Past Psychological History: Anxiety, Depression, PTSD Smoking Status: Never smoker Past Alcohol Use History: None Reported Past Drug Use History: None Reported General Exam Limitations: no limitations General appearance: alert, in no apparent distress, other (Physical well- developed, well-nourished adult male patient in no acute distress. Vital signs upon presentation are temperature 99.2F, pulse 72, respirations 18, blood pressure 136/88, pulse ox 99% on room air.) Eye exam: Present: normal appearance, PERRL, EOMI. Absent: scleral icterus, conjunctival injection, periorbital swelling ENT exam: Present: normal exam, normal oropharynx, mucous membranes moist Respiratory exam: Present: normal lung sounds bilaterally. Absent: respiratory distress, wheezes, rales, rhonchi, stridor Cardiovascular Exam: Present: regular rate, normal rhythm, normal heart sounds. Absent: systolic murmur, diastolic murmur, rubs, gallop, clicks GI/Abdominal exam: Present: soft, normal bowel sounds. Absent: distended, tenderness, guarding, rebound, rigid Neurological exam: Present: alert, oriented X3, CN II-XII intact Psychiatric exam: Present: normal affect, normal mood Skin exam: Present: warm, dry, intact, normal color. Absent: rash Course Vital Signs 02/18/19 18:11 Temperature 99.0 F Pulse Rate 72 Respiratory 18 Rate Blood Pressure 136/88 O2 Sat by Pulse 99 Oximetry Medical Decision Making - Medical Decision Making 28-year-old male patient presents to the emergency department today requesting testing for syphilis. Denies any symptoms or concerns of her having syphilis. States he did have a positive result at the plasma donation center and was instructed to have further testing performed. We did draw blood to test for syphilis, this takes over 24 hours to come back we will treat in the meantime with penicillin intramuscular. Patient is instructed to follow-up with the primary care physician for recheck as soon as possible. One has been recommended to him. Return parameters were discussed in detail. He verbalizes understanding and agrees with this plan. Disposition Clinical Impression: Concern about STD in male without diagnosis Disposition: HOME SELF-CARE Condition: Good Instructions (If sedation given, give patient instructions): Syphilis (ED) Additional Instructions: Call in 2-3 days to inquire about your result. They will call you with a positive result. Follow up with your primary care physician for recheck in 1-2 days. Return to the emergency department for any new, worsening, or concerning symptoms. Is patient prescribed a controlled substance at d/c from ED?: No Referrals: Delphine Olson MD [REFERRING] - 1-2 days Time of Disposition: 18:45
== END 2019-02-18 19:17 | disposition home or self-care (01) ==
LOC: EC 18:00
DX: Z11.3 Encounter for screening for infections with a predominantly sexual mode of transmission (principal); Z71.1 Person with feared health complaint in whom no diagnosis is made; Z88.8 Allergy status to other drugs, medicaments and biological substances
CPT/HCPCS: 36415; 86780; 99283; 96372; J0561

== ENCOUNTER 2019-02-26 15:02 | Emergency (ER) | payer OTHER ==
[2019-02-26 15:14] VITALS: BP 117/78; PULSE 91; RESP 18; TEMP 98.8
[2019-02-26] MEDS ORDERED: IBUPROFEN 600 MG TAB PO STA (15:46)
--- NOTE | 2019-02-26 15:50 | ED ---
General Adult HPI - General Chief complaint: Extremity Injury, Lower Stated complaint: Knee Injury Time Seen by Provider: 02/26/19 15:23 Source: patient Mode of arrival: ambulatory Limitations: no limitations - History of Present Illness Initial comments: Patient a 28-year-old male presenting to the emergency department for left knee pain. She states he was walking on cement stairs when he tripped and his knee landed on the edge of the steps. Patient reports pain in 8-9. Patient states the pain is constant and is exacerbated with internal and external rotation. Patient states that his knee locks up on full extension. Patient reports the pain is only located on the anteromedial aspect of the knee without radiation. Patient denies any swelling or erythema. - Related Data Previous Rx's Medication Instructions Recorded Ibuprofen [Motrin] 600 mg PO Q8HR PRN #30 tab 02/26/19 Allergies Allergy/AdvReac Type Severity Reaction Status Date / Time divalproex sodium Allergy Swelling/YELLOW Verified 02/18/19 18:46 [From Depakote] EYES Review of Systems ROS Statement: Those systems with pertinent positive or pertinent negative responses have been documented in the HPI. ROS Other: All systems not noted in ROS Statement are negative. Past Medical History Past Medical History: Asthma Additional Past Medical History / Comment(s): back pain History of Any Multi-Drug Resistant Organisms: None Reported Past Surgical History: Joint Replacement Additional Past Surgical History / Comment(s): left shoulder rotator cuff repair and biceps tendon repair left arm Past Psychological History: Anxiety, Depression, PTSD Smoking Status: Never smoker Past Alcohol Use History: None Reported Past Drug Use History: None Reported General Exam Limitations: no limitations General appearance: alert, in distress (And pain) Head exam: Present: atraumatic, normocephalic, normal inspection Eye exam: Present: normal appearance, PERRL, EOMI ENT exam: Present: normal exam Neck exam: Present: normal inspection Respiratory exam: Present: normal lung sounds bilaterally. Absent: wheezes, rales, rhonchi, stridor Cardiovascular Exam: Present: regular rate, normal rhythm, normal heart sounds Extremities exam: Present: normal inspection Left Hip exam: Present: normal inspection, full ROM Upper Leg exam: Present: normal inspection, full ROM Knee exam: Present: tenderness (With palpation), swelling (Mild), abrasion, pain w/ pronation/supination (Severe pain with internal and external rotation.). Absent: full ROM (Pain with flexion and extension.), laceration, crepitus, erythema, posterior draw sign (Anterior drawer test negative) Lower Leg exam: Present: normal inspection, full ROM. Absent: Homans' sign Foot/Toe exam: Present: normal inspection, full ROM. Absent: tenderness at base of 5th metatarsal Neurovascular tendon exam: Present: no vascular compromise. Absent: pulse deficit, motor deficit, tendon deficit, foot drop Gait: observed and limited by pain, unable to bear weight 1 - Abrasion Neurological exam: Present: alert, oriented X3 Psychiatric exam: Present: normal affect, normal mood Skin exam: Present: warm, intact, normal color Course Vital Signs 02/26/19 15:12 Temperature 98.8 F Pulse Rate 91 Respiratory 18 Rate Blood Pressure 117/78 O2 Sat by Pulse 96 Oximetry Medical Decision Making - Medical Decision Making Patient is a 28-year-old male presents to emergency department with left knee pain. X-ray of knee is unremarkable. Knee immobilizer was placed on the left knee. Encourage as prescribed. Patient advised to follow with orthopedics. Patient advised to return to emergency department if symptoms worsen. Case discussed with physician. Disposition Clinical Impression: Knee sprain Disposition: HOME SELF-CARE Condition: Stable Instructions (If sedation given, give patient instructions): Knee Sprain (ED) Additional Instructions: Please take medication as prescribed for pain. Please take off knee immobilizer twice a day and don't sleep with it. Follow with orthopedics. Please return to the emergency department is symptoms worsen. Is patient prescribed a controlled substance at d/c from ED?: No Referrals: None,Stated [Primary Care Provider] - 1-2 days Mart White DO [Medical Doctor] - 1-2 days Time of Disposition: 17:23
--- NOTE | 2019-02-26 16:30 | XR ---
EXAMINATION TYPE: XR knee complete LT DATE OF EXAM: 02/26/2019 CLINICAL HISTORY: Pain from fall injury. TECHNIQUE: Three views of the left knee are obtained. COMPARISON: Left knee x-ray May 14, 2017. FINDINGS: There is no acute fracture/dislocation evident in the left knee. The tri-compartment join t spaces appear within normal limits. Well-corticated lucent lesion with sclerotic margin proximal ti bial metaphysis unchanged from 2017 study presumed benign. Distal to this there is stable oval sclero tic focus also presumed benign in the tibial diaphysis posteriorly medially. Overlying clothing mater ial distal femur level is noted. IMPRESSION: There is no acute fracture or dislocation in the left knee.
== END 2019-02-26 17:38 | disposition home or self-care (01) ==
LOC: EC 15:02
DX: S83.92XA Sprain of unspecified site of left knee, initial encounter (principal); Z96.89 Presence of other specified functional implants; Z88.8 Allergy status to other drugs, medicaments and biological substances; W18.43XA Slipping, tripping and stumbling without falling due to stepping from one level to another, initial encounter; Y93.01 Activity, walking, marching and hiking
CPT/HCPCS: 99283

== ENCOUNTER 2019-04-28 16:14 | Emergency (ER) | payer OTHER ==
[2019-04-28 16:24] VITALS: RESP 18
[2019-04-28 18:04] LABS: Amphetamine Screen,Urine Not Detected (NotDetected); Barbiturate Screen,Urine Not Detected (NotDetected); Benzodiazepines Screen,Urine Not Detected (NotDetected); Cocaine Screen,Urine Not Detected (NotDetected); Methadone Screen, Urine Not Detected (NotDetected); Opiate Screen,Urine Not Detected (NotDetected); Oxycodone Screen, Urine Not Detected (NotDetected); Phencyclidine Screen,Urine Not Detected (NotDetected); Tricyclic Antidepressant,Urine Not Detected (NotDetected); Urn Cannabinoid Scrn Not Detected (NotDetected)
--- NOTE | 2019-04-28 18:32 | ED ---
General Adult HPI - General Chief complaint: Drug Screen Stated complaint: poss exposure-meth Time Seen by Provider: 04/28/19 17:00 Source: patient Mode of arrival: ambulatory Limitations: no limitations - History of Present Illness Initial comments: Patient is a 28-year-old male presents emergency Department for a drug screen. Patient states that he wants to be voluntarily tested for CPS purposes in regards to custody of his child. Patient is going to court and wants to provide proof that he is not currently using any illegal substances. Patient otherwise has no other complaints. - Related Data Previous Rx's Medication Instructions Recorded Ibuprofen [Motrin] 600 mg PO Q8HR PRN #30 tab 02/26/19 Allergies Allergy/AdvReac Type Severity Reaction Status Date / Time divalproex sodium Allergy Swelling/YELLOW Verified 04/28/19 16:24 [From Depakote] EYES Review of Systems ROS Statement: Those systems with pertinent positive or pertinent negative responses have been documented in the HPI. ROS Other: All systems not noted in ROS Statement are negative. Past Medical History Past Medical History: Asthma Additional Past Medical History / Comment(s): back pain History of Any Multi-Drug Resistant Organisms: None Reported Past Surgical History: Joint Replacement Additional Past Surgical History / Comment(s): left shoulder rotator cuff repair and biceps tendon repair left arm Past Psychological History: Anxiety, Depression, PTSD Smoking Status: Never smoker Past Alcohol Use History: None Reported Past Drug Use History: None Reported General Exam - General Exam Comments Initial Comments: General: Well-developed well-nourished distress HEENT: Normocephalic/atraumatic, PERLL, pharynx erythema, swallowing well, EAC no erythema, no exudates, TM clear, no cervical lymph nodes Neck: Supple, nontender, trachea midline Chest/Lungs: Normal respirations, no signs of respiratory distress clear to auscultation bilaterally no wheezes, rales, rhonchi Cardiac: Regular rate and rhythm, normal S1-S2, no murmurs rubs or gallops Abdomen/GI: Soft nontender, bowel sounds equal or quadrant x4, no guarding, no rebound no CVA tenderness Musculoskeletal: Nontender, full range of motion, no edema, strength equal bilaterally Skin: Warmth, no rashes or lesions, no cyanosis or diaphoresis Neurologic: AAO x 3, CN 2-12 intact, Psychiatric: Mood and affect normal, judgment normal Limitations: no limitations Course Vital Signs 04/28/19 04/28/19 16:22 19:04 Temperature 99.4 F 98.3 F Pulse Rate 75 72 Respiratory 18 18 Rate Blood Pressure 152/93 145/97 O2 Sat by Pulse 98 100 Oximetry Medical Decision Making - Medical Decision Making Patient is a 28-year-old male presenting to the emergency department for a drug screen. The drug screen results were all negative. Patient wanted to obtain the results in paper form. Advised the patient that he needs to go to medical records in the morning to nut picker a physical copy of the results. Patient is understanding and agreeable. Case discussed with physician. - Lab Data Lab Results 04/28/19 Range/Units 17:27 Urine Opiates Screen Not Detected (NotDetected) Ur Oxycodone Screen Not Detected (NotDetected) Urine Methadone Screen Not Detected (NotDetected) Ur Propoxyphene Screen Not Detected (NotDetected) Ur Barbiturates Screen Not Detected (NotDetected) U Tricyclic Antidepress Not Detected (NotDetected) Ur Phencyclidine Scrn Not Detected (NotDetected) Ur Amphetamines Screen Not Detected (NotDetected) U Methamphetamines Scrn Not Detected (NotDetected) U Benzodiazepines Scrn Not Detected (NotDetected) Urine Cocaine Screen Not Detected (NotDetected) U Marijuana (THC) Screen Not Detected (NotDetected) Disposition Clinical Impression: Encounter for drug screening Disposition: HOME SELF-CARE Condition: Stable Additional Instructions: Please nut picker testing results from medical records in the morning. Is patient prescribed a controlled substance at d/c from ED?: No Referrals: Neema Fox MD [Primary Care Provider] - 1-2 days Time of Disposition: 18:32
[2019-04-28 19:06] VITALS: BP 145/97; PULSE 72; TEMP 98.3
== END 2019-04-28 19:04 | disposition home or self-care (01) ==
LOC: EC 16:14
DX: Z02.89 Encounter for other administrative examinations (principal); Z96.698 Presence of other orthopedic joint implants; Z88.8 Allergy status to other drugs, medicaments and biological substances
CPT/HCPCS: 80306; 99282

== ENCOUNTER 2019-10-13 23:22 | Emergency (ER) | payer OTHER ==
[2019-10-13 23:27] VITALS: TEMP 97.6
[2019-10-14] MEDS ORDERED: METOCLOPRAMIDE 5 MG/ML 2 ML VIAL IVP STA (00:35)
[2019-10-14] MEDS ORDERED: diphenhydrAMINE 50 MG/ML 1 ML VIAL IVP STA (00:35)
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
[2019-10-14] MEDS ORDERED: KETOROLAC 30 MG/ML 1 ML VIAL IVP STA (02:43)
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
[2019-10-14 02:53] VITALS: BP 108/65; PULSE 70; RESP 18
== END 2019-10-14 03:30 | disposition home or self-care (01) ==
LOC: EC 23:22
DX: G93.0 Cerebral cysts (principal); S09.90XA Unspecified injury of head, initial encounter; Z53.20 Procedure and treatment not carried out because of patient's decision for unspecified reasons; Z88.8 Allergy status to other drugs, medicaments and biological substances; V49.40XA Driver injured in collision with unspecified motor vehicles in traffic accident, initial encounter; Y92.410 Unspecified street and highway as the place of occurrence of the external cause; Y93.89 Activity, other specified
CPT/HCPCS: 96374; 96375 ×2; 99284; 72125; 70450; J1200; J2765; J1885

== ENCOUNTER 2020-05-29 23:38 | Emergency (ER) | payer OTHER ==
[2020-05-29 23:47] VITALS: RESP 16
--- NOTE | 2020-05-30 00:10 | ED ---
General Adult HPI - General Chief complaint: Urogenital Stated complaint: Male /pain Time Seen by Provider: 05/29/20 23:48 Source: patient, RN notes reviewed, old records reviewed Mode of arrival: ambulatory Limitations: no limitations - History of Present Illness Initial comments: [place] is a 29-year-old male presents emergency department today with chief complaint of left left testicular pain for 3 weeks. He states he is noticed some swelling. He states is painful whenever he coughs or moves. He denies any significant change in urination including dysuria or burning with urination. He denies nausea or vomiting or abdominal pain. - Related Data Previous Rx's Medication Instructions Recorded Ibuprofen [Motrin] 600 mg PO Q8HR PRN #30 tab 02/26/19 Doxycycline [Vibramycin] 100 mg PO BID 10 Days #20 capsule 05/30/20 Allergies Allergy/AdvReac Type Severity Reaction Status Date / Time divalproex sodium Allergy Swelling/YELLOW Verified 05/29/20 23:48 [From Depakote] EYES Review of Systems ROS Statement: Those systems with pertinent positive or pertinent negative responses have been documented in the HPI. ROS Other: All systems not noted in ROS Statement are negative. Past Medical History Past Medical History: Asthma Additional Past Medical History / Comment(s): back pain History of Any Multi-Drug Resistant Organisms: None Reported Past Surgical History: Joint Replacement Additional Past Surgical History / Comment(s): left shoulder rotator cuff repair and biceps tendon repair left arm Past Psychological History: Anxiety, Depression, PTSD Smoking Status: Never smoker Past Alcohol Use History: None Reported Past Drug Use History: None Reported General Exam - General Exam Comments Initial Comments: 29-year-old male. Alert and oriented 3. No significant distress. Limitations: no limitations General appearance: alert, in no apparent distress Head exam: Present: atraumatic, normocephalic, normal inspection Eye exam: Present: normal appearance, PERRL, EOMI. Absent: scleral icterus, conjunctival injection, periorbital swelling ENT exam: Present: normal exam, mucous membranes moist Neck exam: Present: normal inspection. Absent: tenderness, meningismus, lymphadenopathy Respiratory exam: Present: normal lung sounds bilaterally. Absent: respiratory distress, wheezes, rales, rhonchi, stridor Cardiovascular Exam: Present: regular rate, normal rhythm, normal heart sounds. Absent: systolic murmur, diastolic murmur, rubs, gallop, clicks GI/Abdominal exam: Present: soft, normal bowel sounds. Absent: distended, tenderness, guarding, rebound, rigid exam: Present: testicular tenderness (Patient has left testicular tenderness. Evidence of left sided scrotal swelling.), scrotal swelling. Absent: normal inspection, vertical testicular lie, circumcision Extremities exam: Present: normal inspection, full ROM, normal capillary refill. Absent: tenderness, pedal edema, joint swelling, calf tenderness Back exam: Present: normal inspection Neurological exam: Present: alert, oriented X3, CN II-XII intact Psychiatric exam: Present: normal affect, normal mood Skin exam: Present: warm, dry, intact, normal color. Absent: rash Course Vital Signs 05/29/20 23:44 Temperature 98.4 F Pulse Rate 60 Respiratory 16 Rate Blood Pressure 122/84 O2 Sat by Pulse 98 Oximetry Medical Decision Making - Medical Decision Making Patient is a 29-year-old male presents return today for concern for left testicular pain for the past 3 weeks. Patient initially denies any concern for sexually transmitted infections. Patient does have some evidence of left-sided testicular swelling and tenderness. On ultrasound there is evidence of small fluid collection. Epididymis concern for possibility of epididymitis. No significant hyperemia is noted. Patient's urinalysis is negative for any significant sign of infection at this time. Reevaluation I discussed the options for epididymitis dramatic versus infectious. Patient states that he preferred to be treated with antibiotics until follow-up with PCPOr urology. Discussed return parameters. - Lab Data Lab Results 05/30/20 Range/Units 00:01 Urine Color Yellow Urine Appearance Clear (Clear) Urine pH 5.5 (5.0-8.0) Ur Specific [place] 1.034 (1.001-1.035) Urine Protein 1+ H (Negative) Urine Glucose (UA) Negative (Negative) Urine Ketones Negative (Negative) Urine Blood Moderate H (Negative) Urine Nitrite Negative (Negative) Urine Bilirubin Negative (Negative) Urine Urobilinogen 2.0 (<2.0) mg/dL Ur Leukocyte Esterase Negative (Negative) Urine RBC 5 (0-5) /hpf Urine WBC 3 (0-5) /hpf Ur Squamous Epith Cells <1 (0-4) /hpf Urine Mucus Many H (None) /hpf - Radiology Data Radiology results: report reviewed Social is no torsion or mass. There is left-sided fluid adjacent to the left testicle. This measures almost 3 cm in length. Left epididymis appears larger than right. No significant hyperemia seen. Appearance is nonspecific. Epididymitis on the left side as possible Disposition Clinical Impression: Testicular pain, Epididymitis Disposition: HOME SELF-CARE Condition: Good Instructions (If sedation given, give patient instructions): Epididymitis (ED), Testicle Pain (ED) Additional Instructions: Take antibiotics as prescribed. Follow-up with PCP and urology. Patient advised to have scrotal support with using ice packs Motrin and Tylenol for pain. Prescriptions: Doxycycline [Vibramycin] 100 mg PO BID 10 Days #20 capsule Is patient prescribed a controlled substance at d/c from ED?: No Referrals: Neema Fox MD [Primary Care Provider] - 1-2 days Time of Disposition: 01:07
[2020-05-30 00:17] LABS: Appearance,Urine Clear (Clear); Bilirubin,Urine Negative (Negative); Blood,Urine Moderate (Negative); Color,Urine Yellow; Glucose,Urine (UA) Negative (Negative); Ketones,Urine Negative (Negative); Leukocyte Esterase,Urine Negative (Negative); Mucus,Urine Many /hpf; Nitrite,Urine Negative (Negative); PH, Urine 5.5 (5.0-8.0); Protein,Urine 1+ (Negative); RBC,Urine 5 /hpf (0-5); Specific Gravity,Urine 1.034 (1.001-1.035); Squamous Epithelial Cell,Urine <1 /hpf (0-4); WBC,Urine 3 /hpf (0-5)
--- NOTE | 2020-05-30 00:32 | US ---
EXAMINATION TYPE: US scrotum with doppler. Grayscale and color Doppler Duplex imaging performed of carlos bloom scrotum. DATE OF EXAM: 05/30/2020 COMPARISON: NONE CLINICAL HISTORY: left testicle pain. left testicle pain and edema for 2 weeks EXAM MEASUREMENTS: TESTICLES: Right Testicle: 5.0 x 2.7 x 2.9 cm Left Testicle: 4.9 x 2.9 x 3.8 cm EPIDIDYMIS HEAD: Right Epididymis: 0.7 cm Left Epididymis: 1.8 cm Doppler performed to assess for testicular vascularity; good bilateral color flow and waveforms are s een. There is no evidence of testicular torsion. Presence of hydroceles: small fluid collection lateral to left testicle = 2.9cm Presence of varicoceles: no *left epididymis appears thickened and heterogeneous No testicular torsion or mass. There is left side free fluid adjacent to the testicle. This measures almost 3 cm in length. Left epididymis appears larger than the right. No significant hyperemia seen. Appearance nonspecific. Epididymitis on the left side is possible. IMPRESSION:
[2020-05-30] MEDS ORDERED: cefTRIAXone 250 MG VIAL IM STA (01:01)
[2020-05-30 01:14] VITALS: BP 123/76; PULSE 71
[2020-05-30 01:21] VITALS: TEMP 98
== END 2020-05-30 01:22 | disposition home or self-care (01) ==
LOC: EC 23:38
DX: N45.1 Epididymitis (principal); Z88.8 Allergy status to other drugs, medicaments and biological substances
CPT/HCPCS: 81001; 87491; 87591; 93975; 76870; 99284; 96372; J0696

== ENCOUNTER → 2020-08-28 | Outpatient (CLI) | payer OTHER ==
--- NOTE | 2020-08-29 17:52 | MR ---
EXAMINATION TYPE: MR brain wo/w con DATE OF EXAM: 08/28/2020 COMPARISON: None HISTORY: Cerebral cysts, arachnoid cyst, HANCOCK CONTRAST: Performed utilizing 10 mL intravenous Gadavist gadolinium contrast. TECHNIQUE: Multiplanar, multiecho imaging on a 3.0 Delfina magnet is performed through the brain. Stud y is performed within 24 hours of arrival to the hospital. The craniovertebral junction is normal. The pituitary is normal. Diffusion-weighted imaging is performed. No abnormal hyperintensity is present to suggest an acute i ntracranial infarct or acute ischemic change. There is a complex cyst within the right middle cranial fossa displacing the temporal lobe compatible with an arachnoid cyst. No suspicious enhancement is evident associated with a cyst or elsewhere wit hin the brain. Finding appears stable from the comparison CT examination of 10/14/2019. Ventricles and sulci are otherwise appropriate for the patient age. IMPRESSIONS: 1. Stable appearing arachnoid cyst right sylvian fissure and middle cranial fossa, stable from compar james CT examination.
== END | disposition home or self-care (01) ==
LOC: RADMRIMAIN 07:21
PROVIDERS: ATTEND Family Medicine
DX: G93.0 Cerebral cysts (principal); G93.89 Other specified disorders of brain
CPT/HCPCS: 70553; A9585

== ENCOUNTER → 2021-02-18 | Outpatient (CLI) | payer OTHER ==
--- NOTE | 2021-02-18 14:32 | XR ---
Bilateral hips HISTORY: Chronic pain 2 views of each hip submitted Bone mineralization, joint spaces and alignment are maintained. There are overlying artifacts. IMPRESSION: Normal hips.
--- NOTE | 2021-02-18 14:34 | XR ---
Sacrum and coccyx HISTORY: Chronic pain 3 views of the sacrum and coccyx Bone mineralization, joint spaces and alignment are maintained with exception of some possible mild t ear subluxation in the sacrococcygeal junction. No fracture or dislocation. IMPRESSION: Alignment as described, no evident fracture.
--- NOTE | 2021-02-18 14:37 | XR ---
Lumbar spine HISTORY: Chronic pain 2 views lumbar spine Comparison prior exam 04/10/2018 There is no significant interval change. Lumbar vertebral bodies show stable height, alignment, and b one mineralization. Disc spaces are stable, is mild disc height loss at L4-5. There is mild associate d spondylosis. No paraspinal mass. Suspect some minimal retrolisthesis grade 1 L4-5. IMPRESSION: Degenerative disc disease and facet arthropathy. Findings stable compared to prior exam, lumbar MRI may be of benefit.
== END | disposition home or self-care (01) ==
LOC: RADXRMAIN 11:58
PROVIDERS: ATTEND Family Medicine
DX: M51.36 Other intervertebral disc degeneration, lumbar region (principal); G89.29 Other chronic pain; M25.551 Pain in right hip; M25.552 Pain in left hip
CPT/HCPCS: 72100; 72220; 73521

== ENCOUNTER → 2021-03-25 | Outpatient (CLI) | payer OTHER ==
--- NOTE | 2021-03-26 02:41 | MR ---
EXAMINATION TYPE: MR lumbar spine wo con DATE OF EXAM: 03/25/2021 COMPARISON: None HISTORY: PAIN IN LOWER BACK THAT RADIATES DOWN BOTH LEGS X10 YEARS Multiplanar multiecho imaging of the lumbar spine was performed without contrast. Vertebra have normal alignment. There is mild narrowing and decreased signal in the disc at L4-5. Lum bar nerve roots appear normal. There is some narrowing of the left side neural foramen at L4-5 due to disc space narrowing and posterior lateral disc bulge.. The posterior elements are intact. I see no bony destructive process. Posterior elements are intact. The sacroiliac joints appear intact. There i s no compression fracture. There is no lumbar paraspinal mass. Facet joints are intact. Lumbar nerve roots appear normal. IMPRESSION: Mild left side L4-5 neural foraminal narrowing with posterior lateral L4-5 disc bulge. Mild degenerat bin disc changes at L4-5. No spinal stenosis.
== END | disposition home or self-care (01) ==
LOC: RADMRIMAIN 21:32
PROVIDERS: ATTEND Family Medicine
DX: M51.16 Intervertebral disc disorders with radiculopathy, lumbar region (principal); M99.73 Connective tissue and disc stenosis of intervertebral foramina of lumbar region
CPT/HCPCS: 72148

== ENCOUNTER 2021-05-04 | Emergency (ER) | payer OTHER | END 2021-05-04 01:09 | disposition home or self-care (01) | CPT/HCPCS: 99282 ==